=== PATIENT | male | born 1965 | race Two or more races ===

== ENCOUNTER 2024-12-25 12:48 | Emergency (ER) | payer OTHER ==
[~2024-12-25] VITALS: Ht 172.7 cm; Wt 136.1 kg
[2024-12-25] MEDS ORDERED: IOHEXOL-300 100 ML VIAL IV ONE (13:39)
[2024-12-25] MEDS ORDERED: IV NS 0.9% 250 ML IV ONE (13:39)
[2024-12-25 14:15] LABS: PLATELET COUNT (AUTO) 268 K/uL (150-450); RED BLOOD CELL COUNT(AUTO) 5.28 MIL/uL (4.5-6.0); RED CELL DISTRIBUTION WIDTH 13.6 % (11.5-15.0); WHITE BLOOD COUNT (AUTO) 7.4 K/uL (4.3-11.0)
[2024-12-25 14:21] LABS: CALCIUM, SERUM 8.4 mg/dL (8.5-10.1); CREATININE 1.1 mg/dL (0.6-1.3); SODIUM SERUM 132 mmol/L (136-145); UREA NITROGEN, BLOOD 20 mg/dL (7-18)
[2024-12-25 14:28] LABS: ASPARTATE AMINOTRANSFERASE 22 U/L (15-37); TOTAL PROTEIN, SERUM 7.0 g/dL (6.4-8.2)
[2024-12-25] MEDS: MORPHINE SULFATE INJ 2 MG/ML DISP.SYRIN IV ONE (14:30)
[2024-12-25] MEDS ORDERED: MORPHINE SULFATE INJ 2 MG/ML DISP.SYRIN ONE (15:04)
[2024-12-25 15:43] VITALS: BP 133/76; TEMP 98.1; O2SAT 99
== END 2024-12-25 15:43 | disposition home or self-care (01) ==
LOC: ER 12:56
DX: R10.11 Right upper quadrant pain (principal); R06.02 Shortness of breath; E11.9 Type 2 diabetes mellitus without complications
CPT/HCPCS: 99285; 74177; 96374; 71045; 93005; 85025; 80048; 83690; 80076; 36415; 84484; J7050; J2270; Q9967